=== PATIENT | male | born 1950 | race Caucasian/White ===

== ENCOUNTER 2019-05-17 15:42 | Inpatient (IN) | payer MEDICARE, MEDICAID ==
--- NOTE | 2019-05-17 16:20 | RAD ---
EXAM: 3 views of the right wrist HISTORY: Wrist pain COMPARISON: None FINDINGS: 3 views of the right wrist shows no evidence of acute fracture or dislocation. No soft tiss ue swelling is seen. No degenerative changes are present. IMPRESSION: No evidence of acute osseous abnormality.
[2019-05-17] MEDS ORDERED: Ketorolac Tromethamine 30 MG/ML VIAL ONE (16:37)
[2019-05-17 16:39] LABS: #Basophils 0.1 thou/uL (0.0-0.2); #Eosinphils 0.2 thou/uL (0.0-0.7); #Lymphocytes 1.5 thou/uL (1.20-3.40); #Monocytes 0.9 thou/uL (0.11-0.59); %Basophils 0.9 % (0.0-1.0); %Eosinophils 1.8 % (0.0-10.0); %Lymphocytes 17.7 % (21.0-51.0); %Monocytes 10.3 % (0.0-10.0); %Neutrophils 69.4 % (42.0-75.0); Hemoglobin 15.6 g/dL (14.0-18.0); Mean Corpuscular HGB CONC 35.2 g/dL (32.0-36.0); Mean Corpuscular Hemoglobin 35.8 pg (27.0-31.0); Mean Platelet Volume 7.9 fL (7.4-10.4); Platelet Count 190 thou/uL (130-400); RBC Distribution Width 12.3 % (11.5-14.5); Red Blood Cell (RBC) Count 4.37 mill/uL (4.70-6.10); White Blood Cell (WBC) Count 8.6 thou/uL (4.8-10.8)
[2019-05-17 16:59] LABS: ALT (SGPT) 44 U/L (8-55); AST (SGOT) 41 U/L (5-34); Albumin 4.5 g/dL (3.4-4.8); Alkaline Phosphatase 62 U/L (40-110); Anion Gap 14 mmol/L (10-20); BUN (Urea Nitrogen) 9 mg/dL (8.4-25.7); Bilirubin, Total 1.7 mg/dL (0.2-1.2); Calc. Creatinine Clearance 0 mL/min (70-130); Calcium 9.6 mg/dL (7.8-10.44); Carbon Dioxide 26 mmol/L (23-31); Chloride 101 mmol/L (98-107); Estimated GFR-MDRD 62; Globulin 3.2 g/dL (2.4-3.5); Glucose 87 mg/dL (80-115); Potassium 3.8 mmol/L (3.5-5.1); Protein, Total 7.7 g/dL (5.8-8.1); Sodium 137 mmol/L (136-145)
[2019-05-17] MEDS ORDERED: Acetaminophen 500 MG TAB ONE (18:23)
[2019-05-17] MEDS ORDERED: Piperacillin/Tazobactam 4.5 GM VIAL ONE (19:33)
[2019-05-17] MEDS ORDERED: Ondansetron ODT 4 MG TAB SL PRN (19:59)
[2019-05-17] MEDS ORDERED: Ondansetron PF 4 MG/2 ML Vial IVP PRN (19:59)
[2019-05-17] MEDS ORDERED: Acetaminophen 325 MG TAB PO PRN (19:59)
[2019-05-17 20:35] LABS: Lactic Acid 1.5 mmol/L (0.5-2.2)
[2019-05-17] MEDS: Sodium Chloride 0.9% 1,000 ML IV SCH (22:30)
[2019-05-17] MEDS: Piperacillin/Tazobactam 3.375 GM in Sodium Chloride 0.9% 100 ML IVPB SCH (23:33)
[2019-05-18 00:48] VITALS: BMI 25.8
[2019-05-18] MEDS ORDERED: Vancomycin HCl 1 GM in Premix Bag 1 BAG IVPB SCH (06:00)
[2019-05-18] MEDS: Piperacillin/Tazobactam 3.375 GM in Sodium Chloride 0.9% 100 ML IVPB SCH ×4 (06:19→23:40)
[2019-05-18] MEDS: Sodium Chloride 0.9% 1,000 ML IV SCH (06:20)
--- NOTE | 2019-05-18 10:34 | HP ---
CHIEF COMPLAINT: Right wrist pain. HISTORY OF PRESENT ILLNESS: This patient is a 69-year-old male who is living at the [facility] presently. He had developed a spontaneous pain in his right wrist along with some redness all starting in the night on Sunday 2 days ago. He has had some low-grade fever around that same time frame and the redness is mentioned. He has inability to move the wrist due to significant pain. He has had no prior injury or surgery to that wrist. He does have a small abrasion on the back of his hand near the wrist and he is not sure how that happened, but believes it is a couple of weeks old. REVIEW OF SYSTEMS: Again no fevers or chills. All other systems reviewed, all pertinent positives and negatives noted in HPI. PAST MEDICAL HISTORY: The patient reports a history of hypertension. Says he was on medicines at 1 time, but no longer has access to get medicines. He also says he was told once that he was borderline diabetic, but checked his blood sugar at the [facility] last week and it was fine. PAST SURGICAL HISTORY: He has had back surgery x3, knee surgery, and ankle surgery. FAMILY HISTORY: Mother had diabetes, at 84. Father had Alzheimer's, at 84. SOCIAL HISTORY: The patient is a nonsmoker. He says he previously drank about 4-5 beers per day, but quit that 1 week ago. He denies history of drugs. He has been in senior living, but he has never had any type of tattoos or needle use. He is unaware of ever having been checked for hepatitis or HIV. He says if that has happened, it has been a very long time. He is . He is a DNAR by his own wishes. His surrogate decision maker would be his daughter, Telma who lives in [place]. MEDICATIONS: None. ALLERGIES: NONE. PHYSICAL EXAMINATION: VITAL SIGNS: In the ER, temperature was 100.8, here temperature 99.1, pulse 66, respirations 18, O2 saturation 98% on room air, and BP ranging 126/67 to 166/96. GENERAL APPEARANCE: Age-appropriate male. He is in no distress. He is awake, alert, oriented, pleasant, cooperative. HEENT: DANIEL. He has no OP lesions. He has very poor dentition with numerous black and carious teeth. NECK: Supple and symmetric without lymphadenopathy, JVD, or bruits. HEART: Regular rate and rhythm. No murmurs, gallops, or rubs. LUNGS: Clear to auscultation bilaterally with good chest wall expansion and air exchange. ABDOMEN: Soft, nontender, and nondistended. Positive bowel sounds. No masses. No organomegaly. EXTREMITIES: No cyanosis, clubbing, or edema. His right wrist has a faint halo of erythema around the joint, mostly on the dorsum. He has a very small scabbed abrasion on the dorsum of the hand near the wrist. The entire wrist joint is very tender to palpation extending over to the base of the thumb. He has significant pain with trying to move the wrist in any direction. NEURO: The patient appears to have normal cognition and normal cranial nerves. He has no focal deficits. PSYCH: Normal affect and behavior. LABORATORY DATA: White count 8.6, hemoglobin 15.6, platelets 190, MCV is 102. Sodium 137, potassium 3.8, chloride 101, CO2 is 26, BUN 9, creatinine is 1.16, glucose 87. Lactic acid initially 2.5, subsequent 9.5, total bilirubin is 1.7, AST is 41, ALT is 44. CRP is 1.69. Blood cultures thus far negative. Flu screen negative. Sedimentation rate was 16. DIAGNOSTIC STUDIES: Right wrist x-ray shows no osseous abnormalities. IMPRESSION AND PLAN: 1. Right wrist infection. At this point, it appears to be more likely joint related than soft tissue and cellulitic related. We will keep him on vancomycin and Zosyn, have Orthopedic Surgery evaluate him. Check uric acid level. 2. Macrocytosis. We will start the patient on appropriate B vitamins given his history of daily alcohol use. 3. History of hypertension, continue to monitor his blood pressure. 4. History of "borderline diabetes." The patient's blood sugar is normal here. Job ID: [id number]
[2019-05-18 13:01] LABS: #Basophils 0.1 thou/uL (0.0-0.2); #Eosinphils 0.2 thou/uL (0.0-0.7); #Lymphocytes 1.8 thou/uL (1.20-3.40); #Monocytes 0.8 thou/uL (0.11-0.59); #Neutrophils 5.3 thou/uL (1.40-6.50); %Basophils 1.1 % (0.0-1.0); %Eosinophils 2.7 % (0.0-10.0); %Monocytes 9.3 % (0.0-10.0); %Neutrophils 64.9 % (42.0-75.0); Hemoglobin 14.8 g/dL (14.0-18.0); Mean Corpuscular HGB CONC 34.9 g/dL (32.0-36.0); Mean Platelet Volume 8.2 fL (7.4-10.4); Platelet Count 198 thou/uL (130-400); RBC Distribution Width 12.3 % (11.5-14.5); Red Blood Cell (RBC) Count 4.11 mill/uL (4.70-6.10); White Blood Cell (WBC) Count 8.1 thou/uL (4.8-10.8)
[2019-05-18] MEDS ORDERED: Neomycin-Polymyxin 1 ML AMP ONE ×2 (13:31→15:12)
[2019-05-18] MEDS ORDERED: Fentanyl 100 MCG/2 ML VIAL ONE ×4 (15:03→16:55)
[2019-05-18] MEDS ORDERED: Midazolam HCl 2 mg/2 ml Vial ONE (15:46)
[2019-05-18] MEDS ORDERED: Bupivacaine HCl 0.5%/Epinephrine 1:200,000/PF 30 ml Vial ONE (15:57)
[2019-05-18] MEDS ORDERED: Ondansetron PF 4 MG/2 ML Vial ONE (15:58)
[2019-05-18] MEDS ORDERED: Meperidine HCl/PF 25 MG/ML VIAL SLOW IVP PRN (16:32)
[2019-05-18] MEDS ORDERED: Ondansetron HCl/PF 4 MG/2 ML Vial IVP PRN (16:32)
[2019-05-18] MEDS ORDERED: Promethazine HCl 25 MG/ML VIAL IM PRN (16:32)
[2019-05-18] MEDS ORDERED: Morphine Sulfate 2 MG/ML SYRINGE SLOW IVP PRN (16:32)
[2019-05-18] MEDS ORDERED: HYDROmorphone 2 MG/ML VIAL SLOW IVP PRN (16:32)
[2019-05-18] MEDS ORDERED: Promethazine HCl 25 MG/ML VIAL SLOW IVP PRN (16:32)
[2019-05-18] MEDS ORDERED: PACU-Morphine 4MG/ML VIAL SLOW IVP PRN (16:32)
[2019-05-18] MEDS ORDERED: Ketorolac Tromethamine 30 MG/ML VIAL IVP PRN (16:32)
[2019-05-18] MEDS: Vancomycin HCl 1 GM in Premix Bag 1 BAG IVPB SCH (18:38)
[2019-05-18] MEDS ORDERED: FLU VACC TS2019-20(65YR UP)/PF 180 MCG/0.5 ML SYRINGE IM ONE (21:00)
--- NOTE | 2019-05-18 21:10 | CON ---
DATE OF CONSULTATION: 05/18/2019 HISTORY OF PRESENT ILLNESS: The patient is a 69-year-old male who has developed pain in the dorsum of the right wrist, which started on Sunday, 2 days ago. He had a low-grade fever and redness. The patient is unable to move the wrist without significant pain. He did have an abrasion over the dorsum of the wrist, but states that it was couple of weeks ago. PAST MEDICAL HISTORY: The patient has history of hypertension. CURRENT MEDICATION: None. PAST SURGICAL HISTORY: He has had back surgery x3, knee surgery, and ankle surgery. PHYSICAL EXAMINATION: The patient has a temperature up to 100.8. Examination of the right wrist shows a discrete swelling over the dorsum of the right wrist slightly radial to midline. There is some redness in the area and has point tenderness. He has pain with any attempts of movement of the wrist. He is able to move his fingers, but that also causes pain in the wrist area. IMAGING STUDIES: X-rays of the right wrist shows mild arthritic changes but no acute abnormalities. Right wrist pain, particularly in the dorsum of the right wrist, possibly abscess formation. PLAN: The patient will be taken to the OR for incision and drainage, irrigation and debridement of the dorsum of the right wrist. The patient's questions were answered and agreed to the procedure. Job ID: [id number]
[2019-05-18] MEDS: Famotidine 20 MG TAB PO SCH (22:01)
[2019-05-19 05:37] LABS: #Basophils 0.1 thou/uL (0.0-0.2); #Eosinphils 0.2 thou/uL (0.0-0.7); #Lymphocytes 1.7 thou/uL (1.20-3.40); #Monocytes 0.7 thou/uL (0.11-0.59); %Basophils 1.2 % (0.0-1.0); %Eosinophils 2.7 % (0.0-10.0); %Lymphocytes 25.4 % (21.0-51.0); %Monocytes 9.8 % (0.0-10.0); %Neutrophils 60.9 % (42.0-75.0); Hemoglobin 12.2 g/dL (14.0-18.0); Mean Corpuscular HGB CONC 33.6 g/dL (32.0-36.0); Mean Corpuscular Hemoglobin 34.8 pg (27.0-31.0); Mean Platelet Volume 7.9 fL (7.4-10.4); Platelet Count 173 thou/uL (130-400); RBC Distribution Width 12.3 % (11.5-14.5); Red Blood Cell (RBC) Count 3.51 mill/uL (4.70-6.10); White Blood Cell (WBC) Count 6.6 thou/uL (4.8-10.8)
[2019-05-19 05:54] LABS: Vancomycin, Trough 13.1 ug/mL
[2019-05-19 06:02] LABS: Anion Gap 12 mmol/L (10-20); BUN (Urea Nitrogen) 6 mg/dL (8.4-25.7); Calc. Creatinine Clearance 71 mL/min (70-130); Calcium 8.1 mg/dL (7.8-10.44); Carbon Dioxide 23 mmol/L (23-31); Chloride 104 mmol/L (98-107); Estimated GFR-MDRD 64; Glucose 93 mg/dL (80-115); Sodium 135 mmol/L (136-145)
[2019-05-19] MEDS: Piperacillin/Tazobactam 3.375 GM in Sodium Chloride 0.9% 100 ML IVPB SCH ×3 (06:05→17:50)
[2019-05-19] MEDS: Vancomycin HCl 1 GM in Premix Bag 1 BAG IVPB SCH ×2 (06:06→17:51)
[2019-05-19] MEDS: HYDROcodone/Acetaminophen 5/325 mg Tablet PO PRN ×4 (06:11→20:11)
[2019-05-19] MEDS: Folic Acid 1 MG TAB PO SCH (08:18)
[2019-05-19] MEDS: Thiamine 100 MG TAB PO SCH (08:18)
[2019-05-19] MEDS: Famotidine 20 MG TAB PO SCH ×2 (08:18→20:10)
[2019-05-19] MEDS ORDERED: Ketorolac Tromethamine 30 MG/ML VIAL IVP PRN (13:08)
[2019-05-19] MEDS ORDERED: Amlodipine 5 MG TAB PO SCH (13:15)
[2019-05-19] MEDS: Ibuprofen 800 MG TAB PO PRN (13:55)
--- NOTE | 2019-05-19 16:15 | PDOC.HOSPP ---
- Subjective Subjective: Doing ok. Getting treated well. Still has some pain in the wrist. - Objective Vital Signs & Weight: Vital Signs (12 hours) Temp Pulse Resp BP BP Pulse Ox 05/19/19 13:56 62 171/86 H 05/19/19 12:12 98.1 F 62 17 165/92 H 97 05/19/19 08:00 96 05/19/19 07:19 99.0 F 59 L 20 147/88 H 96 Weight Weight 180 lb 0.119 oz I&O: 05/18/19 05/19/19 05/20/19 06:59 06:59 06:59 Intake Total 1470 1200 Output Total 450 1100 Balance 1020 100 Result Diagrams: 05/19/19 05:07 05/19/19 05:07 Hospitalist ROS - Medication Medications: Active Medications Generic Name Dose Route Start Last Admin Trade Name Freq PRN Reason Stop Dose Admin Hydrocodone Bitart/Acetaminophen 1 tab 05/18/19 09:45 05/19/19 14:43 [place] 5/325 PO 1 tab Q4H PRN Administration Moderate Pain (4-6) Famotidine 20 mg 05/18/19 21:00 05/19/19 08:18 Pepcid PO 20 mg BID CONSTANCE Administration Folic Acid 1 mg 05/19/19 09:00 05/19/19 08:18 Folvite PO 1 mg DAILY CONSTANCE Administration Piperacillin Sod/Tazobactam 100 mls @ 200 mls/hr 05/18/19 12:00 05/19/19 12: 21 Sod 3.375 gm/ Sodium Chloride IVPB 100 mls Q6HR CONSTANCE Administration Vancomycin HCl 1 gm/ Device 200 mls @ 200 mls/hr 05/18/19 18:00 05/19/19 06: 06 IVPB 200 mls 0600,1800 CONSTANCE Administration Ibuprofen 800 mg 05/19/19 13:07 05/19/19 13:55 Motrin PO 800 mg Q6H PRN Administration Moderate Pain (4-6) Sodium Chloride 10 ml 05/17/19 21:00 05/19/19 08:18 Flush - Normal Saline IVF 10 ml Q12HR CONSTANCE Administration Thiamine HCl 100 mg 05/19/19 09:00 05/19/19 08:18 Thiamine PO 100 mg DAILY CONSTANCE Administration - Exam General Appearance: NAD, awake alert Heart: RRR, no murmur, no gallops, no rubs, normal peripheral pulses Respiratory: CTAB, no wheezes, no rales, no ronchi, normal chest expansion, no tachypnea, normal percussion Gastrointestinal: soft, non-tender, non-distended, normal bowel sounds, no palpable masses, no hepatomegaly, no splenomegaly, no bruit Extremities: no cyanosis, no clubbing, no edema Skin: normal turgor, no lesions, no rashes Musculoskeletal: normal tone, normal strength, no muscle wasting Musculoskeletal - other findings: Right wrist wrapped with post-op dressing. Psychiatric: normal affect, normal behavior, A&O x 3 Hosp A/P (1) Septic arthritis of right wrist Code(s): M00.9 - PYOGENIC ARTHRITIS, UNSPECIFIED Status: Acute (2) Streptococcal bacteremia Code(s): R78.81 - BACTEREMIA; B95.5 - UNSP STREPTOCOCCUS THE CAUSE OF DISEASES CLASSD ELSWHR Status: Acute (3) HTN (hypertension) Code(s): I10 - ESSENTIAL (PRIMARY) HYPERTENSION Status: Acute - Plan Continue IV abx. Consult ID. Continue Post-op care. Add amlodipine. Add IB and Toradol for pain control.
--- NOTE | 2019-05-19 17:43 | OP ---
DATE OF PROCEDURE: 05/18/2019 PREOPERATIVE DIAGNOSIS: Abscess formation on the dorsum of the right wrist. POSTOPERATIVE DIAGNOSIS: Abscess formation on the dorsum of the right wrist. PROCEDURE PERFORMED: Incision and drainage, irrigation and debridement of abscess on the right dorsum of the right wrist. ANESTHESIA: IV sedation with local. TECHNIQUE: The patient was taken to the operating room, where he was given good IV sedation by Anesthesia. 0.5% Marcaine with epinephrine was used at the dorsum of the right wrist and the right hand, wrist, and forearm were sterilely prepped and draped in usual fashion. A longitudinal incision was made over the dorsum of the right wrist and blunt dissection was made. Extensor tendons were located, retracted out of the way and the dorsal aspect of the right wrist joint was entered. The patient had somewhat cloudy fluid. This was sent for culture and sensitivity. The wound was copiously irrigated with antibiotic solution using the high-speed cement finisher helper and the wound was left open for drainage. Sterile dressing was applied. The patient was then transferred to recovery room in stable condition. ESTIMATED BLOOD LOSS: Minimal. COMPLICATIONS: None. Job ID: [id number]
[2019-05-19] MEDS ORDERED: Senokot 8.6 MG TAB PO PRN (22:21)
[2019-05-20] MEDS: HYDROcodone/Acetaminophen 5/325 mg Tablet PO PRN ×5 (02:41→20:11)
[2019-05-20] MEDS: Piperacillin/Tazobactam 3.375 GM in Sodium Chloride 0.9% 100 ML IVPB SCH ×3 (02:43→13:17)
[2019-05-20] MEDS: Vancomycin HCl 1 GM in Premix Bag 1 BAG IVPB SCH (05:46)
[2019-05-20] MEDS: Amlodipine 5 MG TAB PO SCH (07:57)
[2019-05-20] MEDS: Thiamine 100 MG TAB PO SCH (07:58)
[2019-05-20] MEDS: Famotidine 20 MG TAB PO SCH ×2 (07:58→20:11)
[2019-05-20] MEDS: Folic Acid 1 MG TAB PO SCH (07:59)
[2019-05-20] MEDS: Ibuprofen 800 MG TAB PO PRN (10:15)
--- NOTE | 2019-05-20 12:54 | PDOC.HOSPP ---
- Subjective Subjective: Doing well. Still has a little pain in the wrist. - Objective Vital Signs & Weight: Vital Signs (12 hours) Temp Pulse Resp BP BP Pulse Ox 05/20/19 07:57 59 L 173/92 H 05/20/19 07:28 97.9 F 59 L 20 173/92 H 97 05/20/19 04:00 98.0 F 59 L 16 135/78 95 Weight Weight 180 lb 0.119 oz I&O: 05/19/19 05/20/19 05/21/19 06:59 06:59 06:59 Intake Total 1200 Output Total 1100 Balance 100 Result Diagrams: 05/19/19 05:07 05/19/19 05:07 Hospitalist ROS - Medication Medications: Active Medications Generic Name Dose Route Start Last Admin Trade Name Freq PRN Reason Stop Dose Admin Hydrocodone Bitart/Acetaminophen 1 tab 05/18/19 09:45 05/20/19 07:58 [place] 5/325 PO 1 tab Q4H PRN Administration Moderate Pain (4-6) Amlodipine Besylate 2.5 mg 05/20/19 09:00 05/20/19 07:57 Norvasc PO 2.5 mg DAILY CONSTANCE Administration Famotidine 20 mg 05/18/19 21:00 05/20/19 07:58 Pepcid PO 20 mg BID CONSTANCE Administration Folic Acid 1 mg 05/19/19 09:00 05/20/19 07:59 Folvite PO 1 mg DAILY CONSTANCE Administration Vancomycin HCl 1 gm/ Device 200 mls @ 200 mls/hr 05/18/19 18:00 05/20/19 05: 46 IVPB 200 mls 0600,1800 CONSTANCE Administration Piperacillin Sod/Tazobactam 100 mls @ 200 mls/hr 05/20/19 08:00 05/20/19 07: 56 Sod 3.375 gm/ Sodium Chloride IVPB 100 mls 0200,0800,1400,2000 CONSTANCE Administration Ibuprofen 800 mg 05/19/19 13:07 05/20/19 10:15 Motrin PO 800 mg Q6H PRN Administration Moderate Pain (4-6) Senna 1 tab 05/19/19 22:21 05/20/19 02:41 Senokot PO 1 tab HSPRN PRN Administration Constipation Sodium Chloride 10 ml 05/17/19 21:00 05/20/19 07:59 Flush - Normal Saline IVF 10 ml Q12HR CONSTANCE Administration Thiamine HCl 100 mg 05/19/19 09:00 05/20/19 07:58 Thiamine PO 100 mg DAILY CONSTANCE Administration - Exam Heart: RRR, no murmur, no gallops, no rubs, normal peripheral pulses Respiratory: CTAB, no wheezes, no rales, no ronchi, normal chest expansion, no tachypnea, normal percussion Gastrointestinal: soft, non-tender, non-distended, normal bowel sounds, no palpable masses, no hepatomegaly, no splenomegaly, no bruit Skin: normal turgor Musculoskeletal - other findings: Right wrist with post op dressing. Hosp A/P (1) Septic arthritis of right wrist Code(s): M00.9 - PYOGENIC ARTHRITIS, UNSPECIFIED Status: Acute (2) Streptococcal bacteremia Code(s): R78.81 - BACTEREMIA; B95.5 - UNSP STREPTOCOCCUS THE CAUSE OF DISEASES CLASSD ELSWHR Status: Acute (3) HTN (hypertension) Code(s): I10 - ESSENTIAL (PRIMARY) HYPERTENSION Status: Acute - Plan Continue IV abx. Consult ID. Continue Post-op care. Add amlodipine. Add IB and Toradol for pain control. If ok for oral abx, can likely DC. If IV required, will need to work on SNF.
[2019-05-20 15:09] LABS: HIV (1/2) Antibody/Antigen Non-Reactive (NonReactive); HIV 1/2 INDEX 0.03 S/CO (<1.00); Hep C IgG Ab Non-Reactive (NonReactive); Hep C Index 0.05 S/CO (0-0.79)
[2019-05-20] MEDS: cefTRIAXone\\ROCEPHIN 1 GM in Sodium Chloride 0.9% 100 ML IVPB SCH (15:55)
--- NOTE | 2019-05-20 17:26 | CON ---
DATE OF CONSULTATION: 05/20/2019 REASON FOR CONSULTATION: Right wrist septic arthritis. HISTORY OF PRESENT ILLNESS: A 69-year-old patient who has a history of hypertension and diabetes mellitus type 2 and has been homeless for the past 2 years after being foreclosed on his trailer. [facility] and developed sudden onset of right wrist pain with chills and fever. No headaches, visual symptoms, sore throat, odynophagia, or dysphagia. No dyspnea or chest pain. No abdominal pain or diarrhea. No cough. No bleeding. No other joint symptoms. No neurological symptoms. PAST MEDICAL HISTORY: Hypertension, type 2 diabetes. PAST SURGICAL HISTORY: Laminectomy, knee arthroscopy. FAMILY HISTORY: Type 2 diabetes, Alzheimer disease. SOCIAL HISTORY: Used to drink 4 to 5 beers a day, but quit recently. Does not smoke cigarettes. Homeless now for about 2 years. MEDICATIONS: He had not been on any medications. Now, he is on, 1. Norvasc. 2. Pepcid. 3. Folvite. 4. Motrin. 5. Zosyn. 6. Vancomycin. PHYSICAL EXAMINATION: VITAL SIGNS: Temperature has been normal. Other vital signs with elevation of systolic blood pressures. O2 sats 97%. Respiratory rate 16 to 20. SKIN: Shows the area of surgical debridement in the right wrist. Dressing was not removed. The patient has a peripheral IV access and is voiding in the toilet. LYMPH: No lymphadenopathy. HEENT: Ocular movements are conjugate. Sclerae are white. Pupils are equal. Conjunctivae are normal. Oral cavity with numerous missing teeth, remainder ones with marked decay and gum disease. No oral cavity lesions otherwise. NECK: Supple. No jugular vein distention. No carotid bruits. LUNGS: Symmetric, clear breath sounds. HEART: S1 and S2, regular rate with a soft aortic murmur 1 to 2/6. ABDOMEN: Soft, not distended or tender. No ascites. No bladder distention. MUSCULOSKELETAL: No joint inflammatory activity outside the area of involvement. Pulses are 1+ in dorsalis pedis. NEUROLOGIC: Nonfocal including cognitive function. LABORATORY DATA: White cell count is 8.6 and now 6.6, hemoglobin 15 and now 12, platelets 190. Chemistry with a sodium 137, creatinine 1.16, bilirubin 1.7, AST 41. CRP is 1.69. Albumin 4.5. Vancomycin trough 13.1. Microbiology with one set of blood cultures with Streptococcus mitis/oralis. The wrist samples obtained by Dr. Gaming with no organisms retrieved thus far from either sample. No organisms seen in the Gram stain either. ASSESSMENT: Type 2 diabetes, homelessness, and hypertension with septic arthritis of right wrist with transient bacteremia associated with it. DISCUSSION: The differential diagnosis includes transient bacteremia from oral cavity with septic arthritis or another primary site that has not yet been disclosed such as, for example, endocarditis. Check HIV, HCV, and echocardiogram if not ordered yet. Switch to Rocephin. Continue PICC line placement and treat for at least 3 weeks as long as the echocardiogram is within normal limits. Since the bacteremia was transient, the likelihood of endocarditis is less, but we will have to follow up the results of the blood cultures to final status. Job ID: [id number]
[2019-05-21] MEDS: HYDROcodone/Acetaminophen 5/325 mg Tablet PO PRN ×4 (05:40→18:24)
[2019-05-21] MEDS: Amlodipine 5 MG TAB PO SCH (08:33)
[2019-05-21] MEDS: Folic Acid 1 MG TAB PO SCH (08:34)
[2019-05-21] MEDS: Famotidine 20 MG TAB PO SCH ×2 (08:34→20:29)
[2019-05-21] MEDS: Thiamine 100 MG TAB PO SCH (08:34)
[2019-05-21] MEDS: Ibuprofen 800 MG TAB PO PRN ×2 (08:44→20:31)
--- NOTE | 2019-05-21 14:04 | PDOC.HOSPP ---
- Subjective Encounter Date: 05/21/19 Encounter Time: 10:30 Subjective: Patient seen and examined. No new complaints. No overnight events - Objective Vital Signs & Weight: Vital Signs (12 hours) Temp Pulse Resp BP BP BP Pulse Ox 05/21/19 08:33 58 L 168/68 H 05/21/19 08:00 96 05/21/19 07:38 97.6 F 58 L 16 168/88 H 96 05/21/19 04:00 98.2 F 64 16 162/92 H 94 L Weight Weight 180 lb 0.119 oz Result Diagrams: 05/19/19 05:07 05/19/19 05:07 Hospitalist ROS - Review of Systems Constitutional: denies: fever, chills, sweats, weakness, malaise, other Eyes: denies: pain, vision change, conjunctivae inflammation, eyelid inflammation, redness, other ENT: denies: ear pain, ear discharge, nose pain, nose discharge, nose congestion , mouth pain, mouth swelling, throat pain, throat swelling, other Respiratory: denies: cough, dry, shortness of breath, hemoptysis, SOB with excertion, pleuritic pain, sputum, wheezing, other Cardiovascular: denies: chest pain, palpitations, orthopnea, paroxysmal noc. dyspnea, edema, light headedness, other Gastrointestinal: denies: nausea, vomiting, abdominal pain, diarrhea, constipation, melena, hematochezia, other Genitourinary: denies: dysuria, frequency, incontinence, hematuria, retention, other Musculoskeletal: denies: neck pain, shoulder pain, arm pain, back pain, hand pain, leg pain, foot pain, other Skin: denies: rash, lesions, nidia, bruising, other - Medication Medications: Active Medications Generic Name Dose Route Start Last Admin Trade Name Freq PRN Reason Stop Dose Admin Hydrocodone Bitart/Acetaminophen 1 tab 05/18/19 09:45 05/21/19 10:27 [place] 5/325 PO 1 tab Q4H PRN Administration Moderate Pain (4-6) Amlodipine Besylate 2.5 mg 05/20/19 09:00 05/21/19 08:33 Norvasc PO 2.5 mg DAILY CONSTANCE Administration Famotidine 20 mg 05/18/19 21:00 05/21/19 08:34 Pepcid PO 20 mg BID CONSTANCE Administration Folic Acid 1 mg 05/19/19 09:00 05/21/19 08:34 Folvite PO 1 mg DAILY CONSTANCE Administration Ceftriaxone Sodium 1 gm/ 100 mls @ 200 mls/hr 05/20/19 14:00 05/20/19 15:55 Sodium Chloride IVPB 100 mls Q24HR CONSTANCE Administration Ibuprofen 800 mg 05/19/19 13:07 05/21/19 08:44 Motrin PO 800 mg Q6H PRN Administration Moderate Pain (4-6) Senna 1 tab 05/19/19 22:21 05/20/19 02:41 Senokot PO 1 tab HSPRN PRN Administration Constipation Sodium Chloride 10 ml 05/17/19 21:00 05/21/19 08:34 Flush - Normal Saline IVF 10 ml Q12HR CONSTANCE Administration Thiamine HCl 100 mg 05/19/19 09:00 05/21/19 08:34 Thiamine PO 100 mg DAILY CONSTANCE Administration - Exam General Appearance: NAD, awake alert Eye: PERRL, anicteric sclera ENT: normocephalic atraumatic, no oropharyngeal lesions Neck: supple, symmetric, no JVD, no thyromegaly Heart: RRR, no murmur, no gallops, no rubs, normal peripheral pulses Respiratory: CTAB, no wheezes, no rales, no ronchi Gastrointestinal: soft, non-tender, non-distended, normal bowel sounds, no palpable masses, no guarding Extremities: no cyanosis, no clubbing, no edema Extremities - other findings: right wrist with dressing Skin: normal turgor, no lesions Neurological: cranial nerve grossly intact, normal sensation to touch, no focal deficits Musculoskeletal: normal tone, normal strength Hosp A/P (1) Septic arthritis of right wrist Code(s): M00.9 - PYOGENIC ARTHRITIS, UNSPECIFIED Status: Acute Qualifiers: Septic arthritis organism: streptococcal Qualified Code(s): M00.231 - Other streptococcal arthritis, right wrist (2) HTN (hypertension) Code(s): I10 - ESSENTIAL (PRIMARY) HYPERTENSION Status: Acute Qualifiers: Hypertension type: essential hypertension Qualified Code(s): I10 - Essential (primary) hypertension (3) Streptococcal bacteremia Code(s): R78.81 - BACTEREMIA; B95.5 - UNSP STREPTOCOCCUS THE CAUSE OF DISEASES CLASSD ELSWHR Status: Acute - Plan old records reviewed/req, continue antibiotics, mental health social worker 05/21/19 Today PICC line if pt agree otherwise tomorrow upper caser is working on his discharge plan [facility], he will need snu or swing bed for assisted iv antibiotic echo result pending medication reviewed as above symptomatic treatment
[2019-05-21] MEDS: cefTRIAXone\\ROCEPHIN 1 GM in Sodium Chloride 0.9% 100 ML IVPB SCH (14:24)
[2019-05-22] MEDS: HYDROcodone/Acetaminophen 5/325 mg Tablet PO PRN ×4 (07:37→20:27)
[2019-05-22] MEDS: Amlodipine 5 MG TAB PO SCH (09:24)
[2019-05-22] MEDS: Famotidine 20 MG TAB PO SCH ×2 (09:26→20:28)
[2019-05-22] MEDS: Thiamine 100 MG TAB PO SCH (09:27)
[2019-05-22] MEDS: Folic Acid 1 MG TAB PO SCH (09:27)
--- NOTE | 2019-05-22 10:37 | PDOC.HOSPP ---
- Subjective Encounter Date: 05/22/19 Encounter Time: 09:25 Subjective: Patient seen and examined. No new complaints. No overnight events - Objective Vital Signs & Weight: Vital Signs (12 hours) Temp Pulse Resp BP BP Pulse Ox 05/22/19 09:24 66 169/90 H 05/22/19 08:10 98 05/22/19 07:49 98.2 F 66 18 189/93 H 98 05/22/19 05:27 98.4 F 57 L 18 136/77 96 05/21/19 23:00 98.2 F 72 19 169/95 H 98 Weight Weight 180 lb 0.119 oz Result Diagrams: 05/19/19 05:07 05/19/19 05:07 Hospitalist ROS - Review of Systems Eyes: denies: pain, vision change, conjunctivae inflammation, eyelid inflammation, redness, other ENT: denies: ear pain, ear discharge, nose pain, nose discharge, nose congestion , mouth pain, mouth swelling, throat pain, throat swelling, other Respiratory: denies: cough, dry, shortness of breath, hemoptysis, SOB with excertion, pleuritic pain, sputum, wheezing, other Cardiovascular: denies: chest pain, palpitations, orthopnea, paroxysmal noc. dyspnea, edema, light headedness, other Gastrointestinal: denies: nausea, vomiting, abdominal pain, diarrhea, constipation, melena, hematochezia, other Genitourinary: denies: dysuria, frequency, incontinence, hematuria, retention, other Musculoskeletal: denies: neck pain, shoulder pain, arm pain, back pain, hand pain, leg pain, foot pain, other - Medication Medications: Active Medications Generic Name Dose Route Start Last Admin Trade Name Freq PRN Reason Stop Dose Admin Hydrocodone Bitart/Acetaminophen 1 tab 05/18/19 09:45 05/22/19 07:37 [place] 5/325 PO 1 tab Q4H PRN Administration Moderate Pain (4-6) Amlodipine Besylate 2.5 mg 05/20/19 09:00 05/22/19 09:24 Norvasc PO 2.5 mg DAILY CONSTANCE Administration Famotidine 20 mg 05/18/19 21:00 05/22/19 09:26 Pepcid PO 20 mg BID CONSTANCE Administration Folic Acid 1 mg 05/19/19 09:00 10/24/19 09:27 Folvite PO 1 mg DAILY CONSTANCE Administration Ceftriaxone Sodium 1 gm/ 100 mls @ 200 mls/hr 05/20/19 14:00 05/21/19 14:24 Sodium Chloride IVPB 100 mls Q24HR CONSTANCE Administration Ibuprofen 800 mg 05/19/19 13:07 05/21/19 20:31 Motrin PO 800 mg Q6H PRN Administration Moderate Pain (4-6) Senna 1 tab 05/19/19 22:21 05/20/19 02:41 Senokot PO 1 tab HSPRN PRN Administration Constipation Sodium Chloride 10 ml 05/17/19 21:00 05/22/19 09:21 Flush - Normal Saline IVF Not Given Q12HR CONSTANCE Thiamine HCl 100 mg 05/19/19 09:00 05/22/19 09:27 Thiamine PO 100 mg DAILY CONSTANCE Administration - Exam General Appearance: NAD, awake alert Eye: PERRL, anicteric sclera ENT: normocephalic atraumatic, no oropharyngeal lesions Neck: supple, symmetric, no JVD, no thyromegaly Heart: RRR, no murmur, no gallops, no rubs, normal peripheral pulses Respiratory: CTAB, no wheezes, no rales, no ronchi Gastrointestinal: soft, non-tender, non-distended, normal bowel sounds Extremities: no cyanosis, no clubbing, no edema Extremities - other findings: right wrist with dressing Skin: normal turgor, no lesions, no rashes Neurological: cranial nerve grossly intact, no focal deficits Musculoskeletal: normal tone, normal strength, no muscle wasting Psychiatric: normal affect, normal behavior, A&O x 3 Hosp A/P (1) Septic arthritis of right wrist Code(s): M00.9 - PYOGENIC ARTHRITIS, UNSPECIFIED Status: Acute Qualifiers: Septic arthritis organism: streptococcal Qualified Code(s): M00.231 - Other streptococcal arthritis, right wrist (2) HTN (hypertension) Code(s): I10 - ESSENTIAL (PRIMARY) HYPERTENSION Status: Acute Qualifiers: Hypertension type: essential hypertension Qualified Code(s): I10 - Essential (primary) hypertension (3) Streptococcal bacteremia Code(s): R78.81 - BACTEREMIA; B95.5 - UNSP STREPTOCOCCUS THE CAUSE OF DISEASES CLASSD ELSWHR Status: Acute (4) Macrocytic anemia Code(s): D53.9 - NUTRITIONAL ANEMIA, UNSPECIFIED Status: Chronic (5) Lactic acidosis Code(s): E87.2 - ACIDOSIS Status: Resolved - Plan old records reviewed/req, continue antibiotics, social psychologist 05/21/19 Today PICC line if pt agree otherwise tomorrow rehabilitation case coordinator is working on [place]nu or swing bed for alf iv antibiotic echo result pending medication reviewed as above symptomatic treatment 05/22/19 today PICC line echo is unremarkable will need placement for IV antibiotics medication reviewed as above symptomatic treatment
--- NOTE | 2019-05-22 14:18 | SPC ---
Ultrasound and Fluoroscopic guided left upper extremity single lumen PICC placement: 10/22/2018 HISTORY: Need for central vascular access. FINDINGS: Informed consent obtained prior to the procedure. Left antecubital fossa prepped and draped in normal sterile fashion. Skin overlying the brachial vein anesthetized with 1% buffered lidocaine. With direct sonographic penny dance, vascular access is obtained via the brachial vein and an 0.018in wire was advanced to the cavoatrial junction. Intravascular length is calculated at 46 cm and of the PICC is cut accordingly. Needle is removed and replaced with a peel-away sheath. The PICC was advanced over the wire. Wire and peel-away sheath were removed. The tip of the catheter overlies the cavoatrial junction. The port flushes well and the catheter is ready for use. Exposure data: 0 minutes of fluoroscopic time 84 mGy per centimeter squared IMPRESSION: Successful ultrasound guided placement of a left upper extremity PICC.
[2019-05-22] MEDS: cefTRIAXone\\ROCEPHIN 1 GM in Sodium Chloride 0.9% 100 ML IVPB SCH (14:40)
--- NOTE | 2019-05-22 15:20 | DIS ---
DATE OF ADMISSION: 05/17/2019 DATE OF DISCHARGE: 05/22/2019 PRIMARY CARE PHYSICIAN: [facility] Call admission. DISCHARGE DISPOSITION: [facility] Bed. PRIMARY DISCHARGE DIAGNOSES: 1. Septic arthritis of right wrist. 2. Streptococcal bacteremia. 3. Lactic acidosis. 4. Abscess over dorsum of right wrist, status post incision and drainage .. SECONDARY DISCHARGE DIAGNOSES: 1. Hypertension. 2. Macrocytic anemia. PRIMARY PROCEDURE/OPERATION: PICC line placed on May 22, 2019. I and D was performed by Dr. Gamign for abscess over dorsum of the right wrist. RADIOLOGICAL INVESTIGATION: Wrist x-ray showed no evidence of acute osseous abnormality. Echocardiography showed normal EF, otherwise diastolic dysfunction. SIGNIFICANT LABORATORY DATA: WBC 6.6, hemoglobin 12.2, platelet 173. Sodium 135, potassium 4.0, BUN 6, creatinine 1.14, calcium 8.1. CRP 1.69. Lactic acid 2.5. Hepatitis C and HIV negative. Blood cultures were positive for Streptococcus mitis. Repeat blood culture negative. Wound culture is negative. Influenza negative. DISCHARGE MEDICATION: 1. Rocephin 1 g IV daily till June 08, 2019. 2. Amlodipine 5 mg daily. 3. Pepcid 20 mg b.i.d. 4. Folic acid 1 mg daily. 5. Thiamine 100 mg p.o. daily. CONTRAINDICATION: None. CODE STATUS: DNR. INPATIENT CONSULTANTS: 1. Dr. Edward Gaming was consulted for abscess over dorsal aspect of wrist, who did I and D. 2. Dr. Wilkinson was consulted for positive blood culture. TEST RESULTS PENDING ON DISCHARGE: None. ALLERGIES: NO KNOWN DRUG ALLERGIES. DISCHARGE PLAN: Posthospital, the patient will follow up with primary care physician, Dr. Gaming and Dr. Wilkinson as instructed. HOSPITAL COURSE: A 69-year-old male with above-mentioned medical problem, who lives at [facility], who was brought to ER with increasing swelling and pain over right wrist. He was found with abscess over dorsal aspect of the wrist and that is why orthopedic physician was consulted. In the emergency room, x-ray of the wrist was unremarkable. The patient underwent I and D of that abscess and subsequently, wound was taken care while in hospital. His culture from abscess did not grow any bacteria. His blood culture was positive for Streptococcus and that is why, Dr. Wilkinson was consulted and he recommended to continue IV Rocephin for total three weeks. While in hospital, the patient has received one week therapy and now, the patient will continue another two-week antibiotic therapy at [facility]. This patient is homeless and that is why, he requires placement for IV antibiotic therapy. This patient was DNR while in hospital. I have seen and examined the patient at bedside today. Paperwork for discharge done. Discharge medication reconciliation done. PICC line placed. I spoke with Dr. Butts and updated about the patient's plan. TIME SPENT: Total time spent on discharge day, 31 minutes Job ID: [id number]
[2019-05-23] MEDS: Amlodipine 5 MG TAB PO SCH (07:53)
[2019-05-23] MEDS: Famotidine 20 MG TAB PO SCH (07:53)
[2019-05-23] MEDS: HYDROcodone/Acetaminophen 5/325 mg Tablet PO PRN ×2 (07:53→11:37)
[2019-05-23] MEDS: Thiamine 100 MG TAB PO SCH (07:53)
[2019-05-23] MEDS: Folic Acid 1 MG TAB PO SCH (07:53)
[2019-05-23] MEDS ORDERED: hydrALAZINE 20 MG/ML VIAL SLOW IVP SCH (10:45)
[2019-05-23] MEDS ORDERED: Amlodipine 5 MG TAB PO SCH (10:45)
[2019-05-23] MEDS ORDERED: Heparin 1,000 UNITS/ML VIAL ONE (11:11)
[2019-05-23 11:34] VITALS: BP 173/89
[2019-05-23 11:40] VITALS: TEMP 98
--- NOTE | 2019-05-23 11:51 | PDOC.HOSPP ---
- Subjective Encounter Date: 05/23/19 Encounter Time: 10:00 Subjective: Patient seen and examined. No new complaints. No overnight events - Objective Vital Signs & Weight: Vital Signs (12 hours) Temp Pulse Resp BP BP Pulse Ox 05/23/19 11:34 173/89 H 05/23/19 11:03 60 183/91 H 05/23/19 10:35 98 F 60 18 183/91 H 96 05/23/19 07:54 95 05/23/19 07:53 62 171/89 H 05/23/19 07:14 98.2 F 62 12 171/89 H 95 05/23/19 05:19 98.0 F 64 19 151/82 H 97 Weight Weight 180 lb 0.119 oz Result Diagrams: 05/19/19 05:07 05/19/19 05:07 Hospitalist ROS - Review of Systems ENT: denies: ear pain, ear discharge, nose pain, nose discharge, nose congestion , mouth pain, mouth swelling, throat pain, throat swelling, other Respiratory: denies: cough, dry, shortness of breath, hemoptysis, SOB with excertion, pleuritic pain, sputum, wheezing, other Cardiovascular: denies: chest pain, palpitations, orthopnea, paroxysmal noc. dyspnea, edema, light headedness, other Gastrointestinal: denies: nausea, vomiting, abdominal pain, diarrhea, constipation, melena, hematochezia, other Genitourinary: denies: dysuria, frequency, incontinence, hematuria, retention, other Musculoskeletal: denies: neck pain, shoulder pain, arm pain, back pain, hand pain, leg pain, foot pain, other Skin: denies: rash, lesions, nidia, bruising, other - Medication Medications: Active Medications Generic Name Dose Route Start Last Admin Trade Name Freq PRN Reason Stop Dose Admin Hydrocodone Bitart/Acetaminophen 1 tab 05/18/19 09:45 05/23/19 11:37 [place] 5/325 PO 1 tab Q4H PRN Administration Moderate Pain (4-6) Amlodipine Besylate 2.5 mg 05/20/19 09:00 05/23/19 07:53 Norvasc PO 2.5 mg DAILY CONSTANCE Administration Amlodipine Besylate 5 mg 05/23/19 10:45 05/23/19 11:03 Norvasc PO 05/23/19 13:00 5 mg NOW CONSTANCE Administration Famotidine 20 mg 05/18/19 21:00 05/23/19 07:53 Pepcid PO 20 mg BID CONSTANCE Administration Folic Acid 1 mg 05/19/19 09:00 05/23/19 07:53 Folvite PO 1 mg DAILY CONSTANCE Administration Hydralazine HCl 5 mg 05/23/19 10:45 05/23/19 11:03 Apresoline SLOW IVP 05/23/19 13:00 5 mg NOW CONSTANCE Administration Ceftriaxone Sodium 1 gm/ 100 mls @ 200 mls/hr 05/20/19 14:00 05/22/19 14:40 Sodium Chloride IVPB 100 mls Q24HR CONSTANCE Administration Ibuprofen 800 mg 05/19/19 13:07 05/21/19 20:31 Motrin PO 800 mg Q6H PRN Administration Moderate Pain (4-6) Senna 1 tab 05/19/19 22:21 05/20/19 02:41 Senokot PO 1 tab HSPRN PRN Administration Constipation Sodium Chloride 10 ml 05/17/19 21:00 05/23/19 07:54 Flush - Normal Saline IVF 10 ml Q12HR CONSTANCE Administration Thiamine HCl 100 mg 05/19/19 09:00 05/23/19 07:53 Thiamine PO 100 mg DAILY CONSTANCE Administration - Exam General Appearance: NAD, awake alert Eye: PERRL, anicteric sclera ENT: normocephalic atraumatic, no oropharyngeal lesions Neck: supple, symmetric, no JVD Heart: RRR, no murmur, no gallops, no rubs Respiratory: CTAB, no wheezes, no rales, no ronchi Gastrointestinal: soft, non-tender, non-distended, normal bowel sounds Extremities: no cyanosis, no clubbing, no edema Skin: normal turgor, no lesions, no rashes Neurological: cranial nerve grossly intact, no focal deficits Musculoskeletal: normal tone, normal strength Psychiatric: normal affect, normal behavior, A&O x 3 Hosp A/P (1) Septic arthritis of right wrist Code(s): M00.9 - PYOGENIC ARTHRITIS, UNSPECIFIED Status: Acute Qualifiers: Septic arthritis organism: streptococcal Qualified Code(s): M00.231 - Other streptococcal arthritis, right wrist (2) HTN (hypertension) Code(s): I10 - ESSENTIAL (PRIMARY) HYPERTENSION Status: Acute Qualifiers: Hypertension type: essential hypertension Qualified Code(s): I10 - Essential (primary) hypertension (3) Streptococcal bacteremia Code(s): R78.81 - BACTEREMIA; B95.5 - UNSP STREPTOCOCCUS THE CAUSE OF DISEASES CLASSD ELSWHR Status: Acute (4) Macrocytic anemia Code(s): D53.9 - NUTRITIONAL ANEMIA, UNSPECIFIED Status: Chronic (5) Lactic acidosis Code(s): E87.2 - ACIDOSIS Status: Resolved - Plan old records reviewed/req, continue antibiotics, 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
--- NOTE | 2019-05-27 06:58 | PQF ---
GIL TIWARI SALIM NOORJIBHAI MD [id number] CLINICAL DOCUMENTATION CLARIFICATION FORM: POST DISCHARGE Addendum to original discharge summary date: ____ Late entry note date: __ DATE:05/27/2019 ATTN:MAHAMED MANN MD Please exercise your independent, professional judgment in responding to the clarification form. Clinical indicators are provided on the bottom of this form for your review Please check appropriate box(es): [ x ] Sepsis due to: (Pna, UTI, gangrenous gall bladder, etc.) _cellulitis and abscess and with septic arthritis of wrist Due to: [ ] Device (please specify) [ ] Implant [ ] Graft [ ] Infusion [ ] SIRS due to non-infectious process (please specify etiology) [ ] with organ dysfunction [ ] without organ dysfunction [ ] Severe sepsis with acute organ dysfunction of: (Examples: respiratory failure, encephalopathy, acute kidney failure, other) [ ] Septic Shock [ ] Localized infection without sepsis [ ] Other diagnosis [ ] Unable to determine In addition, please specify: Present on Admission (POA): [ x ] Yes [ ] No [ ] Unable to determine For continuity of documentation, please document condition throughout progress notes and discharge summary. Thank You. CLINICAL INDICATORS - SIGNS / SYMPTOMS / LABS A 69 year old male encounters with increased swelling and pain over right wrist , Underwent I and D of abscess and was diagnosed with septic arthritis of wrist - ED Provider report 05/17/[address] Erica Hamlin DO SIRS- ED Provider report 05/17/[address] Erica Hamlin DO Streptococcal bacteremia documented in DS on 05/22/[address] Joao Rubio Fever documented in ED Provider report 05/17/[address] Erica Hamlin DO Lactic acidosis documented in Hospitalist PN on 05/22/[address] Joao Rubio Bradycardia as per laboratory vital signs on 05/20/19 RISK FACTORS Septic arthritis of wrist documented in DS on 05/22/[address] Joao Rubio TREATMENTS: Patient was treated with IV antibiotics and was sent to [facility] with prescription of 1g rocephin IV till June 08 as documented in DS on 05/22/[address] Joao Rubio. (This form is maintained as a part of the permanent medical record) 2014 [employer] All Rights Reserved Reg [not provided] MTDD
--- NOTE | 2019-05-27 07:10 | PQF ---
GIL TIWARI SALIM NOORJIBHAI MD [id number] CLINICAL DOCUMENTATION CLARIFICATION FORM: POST DISCHARGE Addendum to original discharge summary date: ____ Late entry note date: __ DATE:05/27/2019 ATTN: MAHAMED MANN MD Please exercise your independent, professional judgment in responding to the clarification form. Clinical indicators are provided on the bottom of this form for your review Please check appropriate box(es): [ ] Sepsis due to: (Pna, UTI, gangrenous gall bladder, etc.) Due to: [ ] Device (please specify) [ ] Implant [ ] Graft [ ] Infusion [ ] SIRS due to non-infectious process (please specify etiology) [ ] with organ dysfunction [ ] without organ dysfunction [ ] Severe sepsis with acute organ dysfunction of: (Examples: respiratory failure, encephalopathy, acute kidney failure, other) [ ] Septic Shock [ ] Localized infection without sepsis [ x ] Other diagnosis _sepsis due to right wrist cellulitis with abscess and septic arthritis [ ] Unable to determine In addition, please specify: Present on Admission (POA): [ x ] Yes [ ] No [ ] Unable to determine For continuity of documentation, please document condition throughout progress notes and discharge summary. Thank You. CLINICAL INDICATORS - SIGNS / SYMPTOMS / LABS A 69 year old male encounters with increased swelling and pain over right wrist , Underwent I and D of abscess and was diagnosed with septic arthritis of wrist. ED Provider report 05/17/[address] Erica Hamlin DO SIRS- ED Provider report 05/17/[address] Erica Hamlin DO Streptococcal bacteremia documented in DS on 05/22/[address] Joao Rubio Fever documented in ED Provider report 05/17/[address] Erica Hamlin DO Lactic acidosis documented in Hospitalist PN on 05/22/[address] Joao Rubio Bradycardia as per laboratory vital signs on 05/20/19 RISK FACTORS Septic arthritis of wrist documented in DS on 05/22/[address] Joao Rubio TREATMENTS: Patient was treated with IV antibiotics and was sent to [facility] with prescription of 1g rocephin IV till June 08 as documented in DS on 05/22/[address] Joao Rubio. (This form is maintained as a part of the permanent medical record) 2014 [email or web address] All Rights Reserved [email or web address] [not provided] MTDD
== END 2019-05-23 11:40 | disposition swing bed (61) | DRG 854 ==
LOC: ERS 15:42 → T4-B 19:34
PROVIDERS: ADMIT Internal Medicine; ATTEND Internal Medicine
PROC: 0R9N0ZZ Drainage of Right Wrist Joint, Open Approach (ICD-10-PCS; principal; 2019-05-19)
PROC: 02HV33Z Insertion of Infusion Device into Superior Vena Cava, Percutaneous Approach (ICD-10-PCS; 2019-05-22)
DX: A41.89 Other specified sepsis (principal); M00.23 Other streptococcal arthritis, wrist; L02.413 Cutaneous abscess of right upper limb; E87.2 Acidosis; L03.113 Cellulitis of right upper limb; I10 Essential (primary) hypertension; D75.89 Other specified diseases of blood and blood-forming organs; Z66 Do not resuscitate
CPT/HCPCS: 36415; 36569; 80048; 80053; 80202; 83605; 84550; 85025; 85652; 86140; 86803; 87040; 87070; 87149; 87205; 87389; 87804; 93306; 96361; 96365; 96375; C1751; J0360; J0670; J0696; J1644; J1885; J2250; J2405; J2543; J3010; J3370; J3490

== ENCOUNTER 2021-11-07 20:18 | Inpatient (IN) | payer MEDICARE, MEDICAID ==
[2021-11-07] MEDS ORDERED: CEFAZOLIN 1 GM VIAL ONE (20:22)
[2021-11-07] MEDS ORDERED: Boostrix 0.5 ML (Tdap) VIAL ONE (20:22)
[2021-11-07] MEDS ORDERED: hydrALAZINE 20 MG/ML VIAL SLOW IVP PRN ×2 (20:42→21:53)
[2021-11-07] MEDS ORDERED: Dextrose 50% Abboject 50 ML SYRINGE SLOW IVP PRN (20:42)
[2021-11-07] MEDS ORDERED: Ondansetron PF 4 MG/2 ML Vial IVP PRN (20:42)
[2021-11-07] MEDS ORDERED: Dextrose 5% in Water 1,000 ML IV PRN (20:42)
[2021-11-07] MEDS ORDERED: Famotidine 20 MG TAB PO SCH (21:00)
[2021-11-07] MEDS ORDERED: Ondansetron PF 4 MG/2 ML Vial ONE ×2 (21:07→22:28)
[2021-11-07] MEDS ORDERED: Morphine 4 MG/ML VIAL ONE (21:07)
[2021-11-07 21:13] LABS: Phosphorus 3.2 mg/dL (2.3-4.7)
[2021-11-07 21:21] LABS: ALT (SGPT) 111 U/L (8-55); AST (SGOT) 119 U/L (5-34); Albumin 4.5 g/dL (3.4-4.8); Alkaline Phosphatase 58 U/L (40-110); Anion Gap 22 mmol/L (10-20); BUN (Urea Nitrogen) 9 mg/dL (8.4-25.7); Bilirubin, Total 1.6 mg/dL (0.2-1.2); Calc. Creatinine Clearance 0 mL/min (70-130); Carbon Dioxide 18 mmol/L (23-31); Chloride 86 mmol/L (98-107); Globulin 2.9 g/dL (2.4-3.5); Glucose 99 mg/dL (83-110); Magnesium 1.6 mg/dL (1.6-2.6); Potassium 4.3 mmol/L (3.5-5.1); Protein, Total 7.4 g/dL (5.8-8.1); Sodium 122 mmol/L (136-145)
[2021-11-07 21:36] LABS: INR-International Normal Ratio 1.1; PTT 26.8 sec (22.9-36.1)
[2021-11-07 21:51] LABS: #Basophils 0.1 thou/uL (0.0-0.2); #Eosinphils 0.1 thou/uL (0.0-0.7); #Lymphocytes 1.5 thou/uL (1.20-3.40); #Monocytes 0.8 thou/uL (0.11-0.59); #Neutrophils 6.6 thou/uL (1.40-6.50); %Basophils 0.6 % (0.0-1.0); %Eosinophils 1.3 % (0.0-10.0); %Lymphocytes 16.5 % (21.0-51.0); %Monocytes 8.8 % (0.0-10.0); %Neutrophils 72.8 % (42.0-75.0); Hemoglobin 14.2 g/dL (14.0-18.0); MDiff Complete? YES; Macrocytosis SLIGHT = 6-15 cells (100X) (0-5/hpf); Mean Corpuscular HGB CONC 35.7 g/dL (32.0-36.0); Mean Corpuscular Hemoglobin 37.6 pg (27.0-31.0); Mean Platelet Volume 7.1 fL (7.4-10.4); Platelet Count 264 thou/uL (130-400); RBC Distribution Width 11.7 % (11.5-14.5); Red Blood Cell (RBC) Count 3.78 mill/uL (4.70-6.10)
[2021-11-07] MEDS ORDERED: Ibuprofen 800 MG TAB PO PRN (21:53)
[2021-11-07] MEDS ORDERED: traMADol HCl 50 MG TAB PO PRN (21:53)
[2021-11-07] MEDS ORDERED: Sodium Phosphate 30 MMOL in Sodium Chloride 0.9% 250 ML 250 ML IVPB SCH (22:00)
[2021-11-07] MEDS ORDERED: Fentanyl 100 MCG/2 ML VIAL ONE ×2 (22:14→23:47)
[2021-11-07] MEDS ORDERED: Magnesium Sulfate In Water 4 GM in Premix Bag 1 BAG IVPB SCH (22:15)
[2021-11-07] MEDS ORDERED: ceFAZolin (BATCH) 2 GM in Premix Bag 1 BAG IVPB SCH (22:15)
[2021-11-07 22:19] LABS: SARS-CoV-2 NAA Rapid Test Not Detected (NotDetected)
[2021-11-07 22:26] LABS: Acetaminophen Less than 10.0 mcg/mL (10.0-30.0); Alcohol 153 mg/dL (Less than 10); Salicylate Less than 8.0 mg/dL (15.0-30.0)
[2021-11-07] MEDS ORDERED: PROPOFOL 200 MG/20 ML VIAL ONE (22:28)
[2021-11-07] MEDS ORDERED: Glycopyrrolate 0.2 MG/ML 5 ML SYRINGE ONE (22:28)
[2021-11-07] MEDS ORDERED: Succinylcholine 200 MG/10 ml SYRINGE FS ONE (22:28)
[2021-11-07] MEDS ORDERED: Lidocaine 1% PF 5 ML VIAL ONE (22:28)
[2021-11-07] MEDS ORDERED: Dexamethasone 20 MG/5 ML VIAL ONE (22:28)
[2021-11-07] MEDS ORDERED: Rocuronium Bromide 10 MG/ML (10ML VIAL) ONE (22:28)
[2021-11-07] MEDS ORDERED: Amlodipine 5 MG TAB PO SCH (22:30)
[2021-11-07] MEDS ORDERED: Promethazine HCl 25 MG/ML VIAL IM PRN (23:37)
[2021-11-07] MEDS ORDERED: PACU-Morphine 4MG/ML VIAL SLOW IVP PRN (23:37)
[2021-11-07] MEDS ORDERED: Ondansetron HCl/PF 4 MG/2 ML Vial IVP PRN (23:37)
[2021-11-07] MEDS ORDERED: Promethazine HCl 25 MG/ML VIAL IVPB PRN (23:37)
[2021-11-07] MEDS ORDERED: Bacitracin Zinc Ointment 30 gm TUBE ONE (23:54)
[2021-11-08] MEDS: Oxazepam 10 MG CAP PO SCH ×4 (00:51→20:35)
[2021-11-08] MEDS: Gabapentin 100 MG CAP PO SCH ×4 (00:51→20:30)
[2021-11-08] MEDS: Acetaminophen 325 MG TAB PO SCH ×3 (00:52→10:32)
[2021-11-08] MEDS: Sodium Chloride 0.9% 1,000 ML IV SCH ×2 (00:57→07:18)
[2021-11-08] MEDS: Cyclobenzaprine 10 MG TAB PO PRN (00:58)
[2021-11-08] MEDS: Morphine 4 MG/ML VIAL SLOW IVP PRN ×2 (00:58→04:43)
[2021-11-08] MEDS: traMADol HCl 50 MG TAB PO SCH ×2 (01:01→04:43)
[2021-11-08 01:20] VITALS: BMI 25.9
[2021-11-08] MEDS: ceFAZolin (BATCH) 2 GM in Premix Bag 1 BAG IVPB SCH ×2 (04:42→15:51)
[2021-11-08 05:31] LABS: #Lymphocytes 0.5 thou/uL (1.20-3.40); #Monocytes 0.3 thou/uL (0.11-0.59); #Neutrophils 9.2 thou/uL (1.40-6.50); %Eosinophils 0.1 % (0.0-10.0); %Lymphocytes 4.6 % (21.0-51.0); %Monocytes 2.7 % (0.0-10.0); %Neutrophils 92.5 % (42.0-75.0); Hemoglobin 13.2 g/dL (14.0-18.0); Mean Corpuscular HGB CONC 34.6 g/dL (32.0-36.0); Mean Corpuscular Hemoglobin 36.1 pg (27.0-31.0); Platelet Count 247 thou/uL (130-400); RBC Distribution Width 11.4 % (11.5-14.5); Red Blood Cell (RBC) Count 3.67 mill/uL (4.70-6.10); White Blood Cell (WBC) Count 9.9 thou/uL (4.8-10.8)
[2021-11-08 05:54] LABS: Anion Gap 17 mmol/L (10-20); BUN (Urea Nitrogen) 8 mg/dL (8.4-25.7); Calc. Creatinine Clearance 86 mL/min (70-130); Calcium 8.5 mg/dL (7.8-10.44); Carbon Dioxide 19 mmol/L (23-31); Chloride 84 mmol/L (98-107); Glucose 146 mg/dL (83-110); Magnesium 2.3 mg/dL (1.6-2.6); Phosphorus 4.1 mg/dL (2.3-4.7); Potassium 4.3 mmol/L (3.5-5.1)
[2021-11-08 05:59] LABS: Sodium 116 mmol/L (136-145)
[2021-11-08] MEDS ORDERED: Acetaminophen/Codeine 30-300mg Tablet PO PRN ×2 (06:40→06:41)
[2021-11-08] MEDS: Polyethylene Glycol 3350 17 GM Packet PO SCH (07:40)
[2021-11-08] MEDS: Folic Acid 1 MG TAB PO SCH (07:41)
[2021-11-08] MEDS: Senokot S 8.6-50 MG TAB PO SCH ×2 (07:41→20:30)
[2021-11-08] MEDS: Multivitamin W/ Minerals 1 TAB PO SCH (07:41)
[2021-11-08] MEDS: Thiamine 100 MG TAB PO SCH (07:41)
[2021-11-08] MEDS: STERILE WATER IV SCH ×2 (07:48→12:01)
[2021-11-08] MEDS: SODIUM CHLORIDE IV SCH ×2 (07:48→12:01)
[2021-11-08 09:38] LABS: Sodium 118 mmol/L (136-145)
[2021-11-08] MEDS ORDERED: traMADol HCl 50 MG TAB PO PRN ×2 (10:47→15:19)
[2021-11-08] MEDS: Sodium Chloride 1 GM TAB PO SCH ×2 (11:52→18:46)
[2021-11-08] MEDS: Ibuprofen 200 MG TAB PO SCH ×2 (11:52→18:46)
[2021-11-08] MEDS ORDERED: traMADol HCl 50 MG TAB PO SCH (12:00)
[2021-11-08 14:58] LABS: Sodium 117 mmol/L (136-145)
[2021-11-08] MEDS: Acetaminophen/Codeine 30-300mg Tablet PO SCH ×2 (15:51→20:28)
[2021-11-08 17:26] LABS: Sodium 120 mmol/L (136-145)
[2021-11-08] MEDS: Pancrelipase DR 12,000 1 CAP PO SCH (17:29)
[2021-11-08 19:54] LABS: Sodium 121 mmol/L (136-145)
[2021-11-08] MEDS: Amlodipine 5 MG TAB PO SCH (20:30)
[2021-11-08 23:17] LABS: Sodium 125 mmol/L (136-145)
[2021-11-09] MEDS: Acetaminophen/Codeine 30-300mg Tablet PO SCH ×4 (01:49→21:29)
[2021-11-09] MEDS: Ibuprofen 200 MG TAB PO SCH ×3 (01:50→18:45)
[2021-11-09] MEDS: Oxazepam 10 MG CAP PO SCH ×3 (06:05→21:30)
[2021-11-09] MEDS: Gabapentin 100 MG CAP PO SCH ×3 (06:05→21:29)
[2021-11-09 06:15] LABS: Anion Gap 15 mmol/L (10-20); BUN (Urea Nitrogen) 13 mg/dL (8.4-25.7); Calc. Creatinine Clearance 76 mL/min (70-130); Calcium 8.8 mg/dL (7.8-10.44); Carbon Dioxide 23 mmol/L (23-31); Chloride 94 mmol/L (98-107); Glucose 149 mg/dL (83-110); Magnesium 2.1 mg/dL (1.6-2.6); Phosphorus 2.7 mg/dL (2.3-4.7); Potassium 4.6 mmol/L (3.5-5.1); Sodium 127 mmol/L (136-145)
[2021-11-09] MEDS: Polyethylene Glycol 3350 17 GM Packet PO SCH (08:18)
[2021-11-09] MEDS: Multivitamin W/ Minerals 1 TAB PO SCH (08:18)
[2021-11-09] MEDS: Pancrelipase DR 12,000 1 CAP PO SCH ×3 (08:18→17:02)
[2021-11-09] MEDS: Folic Acid 1 MG TAB PO SCH (08:18)
[2021-11-09] MEDS: Enoxaparin Sodium 40 MG/0.4 ML SYRINGE SC SCH (08:18)
[2021-11-09] MEDS: Thiamine 100 MG TAB PO SCH (08:18)
[2021-11-09] MEDS: Senokot S 8.6-50 MG TAB PO SCH ×2 (08:26→21:30)
[2021-11-09] MEDS: Cyclobenzaprine 10 MG TAB PO PRN (12:31)
[2021-11-09] MEDS: Amlodipine 5 MG TAB PO SCH (21:29)
[2021-11-10] MEDS: Ibuprofen 200 MG TAB PO SCH ×2 (02:58→12:14)
[2021-11-10] MEDS: Acetaminophen/Codeine 30-300mg Tablet PO SCH ×2 (02:58→08:43)
[2021-11-10] MEDS: Oxazepam 10 MG CAP PO SCH (05:50)
[2021-11-10] MEDS: Gabapentin 100 MG CAP PO SCH (05:50)
[2021-11-10] MEDS: Enoxaparin Sodium 40 MG/0.4 ML SYRINGE SC SCH (08:42)
[2021-11-10] MEDS: Multivitamin W/ Minerals 1 TAB PO SCH (08:42)
[2021-11-10] MEDS: Pancrelipase DR 12,000 1 CAP PO SCH ×2 (08:42→12:14)
[2021-11-10] MEDS: Folic Acid 1 MG TAB PO SCH (08:43)
[2021-11-10] MEDS: Thiamine 100 MG TAB PO SCH (08:43)
[2021-11-10] MEDS: Polyethylene Glycol 3350 17 GM Packet PO SCH (08:43)
[2021-11-10] MEDS: Senokot S 8.6-50 MG TAB PO SCH (08:44)
[2021-11-10 10:58] LABS: #Eosinphils 0.2 thou/uL (0.0-0.7); #Lymphocytes 1.4 thou/uL (1.20-3.40); #Monocytes 0.8 thou/uL (0.11-0.59); #Neutrophils 4.6 thou/uL (1.40-6.50); %Basophils 0.5 % (0.0-1.0); %Eosinophils 2.7 % (0.0-10.0); %Lymphocytes 19.6 % (21.0-51.0); %Monocytes 10.9 % (0.0-10.0); %Neutrophils 66.4 % (42.0-75.0); Hemoglobin 12.7 g/dL (14.0-18.0); Mean Corpuscular HGB CONC 34.3 g/dL (32.0-36.0); Mean Corpuscular Hemoglobin 37.1 pg (27.0-31.0); Mean Platelet Volume 7.3 fL (7.4-10.4); Platelet Count 240 thou/uL (130-400); RBC Distribution Width 11.9 % (11.5-14.5); Red Blood Cell (RBC) Count 3.42 mill/uL (4.70-6.10); White Blood Cell (WBC) Count 6.9 thou/uL (4.8-10.8)
[2021-11-10 11:21] LABS: MDiff Complete? YES; Macrocytosis SLIGHT = 6-15 cells (100X) (0-5/hpf); Platelet Morphology Comment Appears Adequate; Polychromasia SLIGHT = 2-3 cells (100X) (0-2/hpf)
[2021-11-10 11:26] LABS: Anion Gap 15 mmol/L (10-20); BUN (Urea Nitrogen) 10 mg/dL (8.4-25.7); Calc. Creatinine Clearance 67 mL/min (70-130); Calcium 9.3 mg/dL (7.8-10.44); Carbon Dioxide 23 mmol/L (23-31); Chloride 97 mmol/L (98-107); Glucose 144 mg/dL (83-110); Phosphorus 3.3 mg/dL (2.3-4.7); Potassium 4.4 mmol/L (3.5-5.1); Sodium 131 mmol/L (136-145)
[2021-11-10 11:59] VITALS: BP 139/80; TEMP 98.8
== END 2021-11-10 13:11 | disposition home or self-care (01) | DRG 511 ==
LOC: ERS 20:18 → SDC/OP 22:23 → SURG A 23:00
PROVIDERS: ADMIT Specialist; ATTEND Specialist
PROC: 0PSK04Z Reposition Right Ulna with Internal Fixation Device, Open Approach (ICD-10-PCS; principal; 2021-11-08)
DX: S52.691B Other fracture of lower end of right ulna, initial encounter for open fracture type I or II (principal); E87.1 Hypo-osmolality and hyponatremia; E78.5 Hyperlipidemia, unspecified; E78.00 Pure hypercholesterolemia, unspecified; I10 Essential (primary) hypertension; G89.29 Other chronic pain; S41.011A Laceration without foreign body of right shoulder, initial encounter; S61.511A Laceration without foreign body of right wrist, initial encounter; X99.1XXA Assault by knife, initial encounter; Z20.822 Contact with and (suspected) exposure to COVID-19; F10.10 Alcohol abuse, uncomplicated; S40.811A Abrasion of right upper arm, initial encounter; S50.812A Abrasion of left forearm, initial encounter; Z98.890 Other specified postprocedural states; Y92.009 Unspecified place in unspecified non-institutional (private) residence as the place of occurrence of the external cause
CPT/HCPCS: 36415; 71045; 76000; 80048; 80053; 80307; 83735; 84100; 85025; 85610; 85730; 86850; 86900; 86901; 90471; 90715; 96365; 96375; A4217; G0390; J0690; J1100; J1650; J2270; J2405; J2704; J3010; J3475; J7050; U0002